=== PATIENT | male | born 1935 | race Caucasian/White ===

== ENCOUNTER 2018-10-01 06:52 | Inpatient (IN) | payer MEDICARE, OTHER ==
[~2018-10-01] VITALS: Ht 177.8 cm; Wt 67.6 kg
[2018-10-01] MEDS ORDERED: SODIUM CHLORIDE FLUSH 10ML SYR IVF ONE (07:30)
--- NOTE | 2018-10-01 07:48 | NUR ---
patient brought in by SHANKAR from his residence, he states that he lives with his sister and brother in law, has had weakness for approx 1 month, worsening in the last week, patient's medical hx includes CVA x2, no home medications, Chronic L knee and back neck pains. Xray and lab at bedside, urine collected and sent to lab, call light in reach, blankets provided.
[2018-10-01 07:50] LABS: BASOPHILS # (AUTO) 0.08 x10^3/uL (0-0.1); BASOPHILS % (AUTO) 1 % (0-1); EOSINOPHILS # (AUTO) 0.23 x10^3/uL (0-0.4); EOSINOPHILS % (AUTO) 3 % (1-7); LYMPHOCYTES # (AUTO) 2.47 x10^3/uL (1-3.4); LYMPHOCYTES % (AUTO) 36 % (22-44); MD NO; MEAN CORPUSCULAR HEMOGLOBIN 34.5 pg (27.5-34.5); MEAN CORPUSCULAR HGB CONC 32.9 g/dL (33.2-36.2); MEAN CORPUSCULAR VOLUME 104.7 fL (81-97); MEAN PLATELET VOLUME 7.3 fL (7.4-10.4); MONOCYTES # (AUTO) 0.72 x10^3/uL (0.2-0.8); MONOCYTES % (AUTO) 11 % (2-9); NEUTROPHILS # (AUTO) 3.33 x10^3/uL (1.8-6.8); NEUTROPHILS % (AUTO) 49 % (42-75); PLATELET COUNT 244 x10^3/uL (130-400); RED BLOOD COUNT 3.99 x10^6/uL (4.38-5.82); RED CELL DISTRIBUTION WIDTH 14.1 % (9.4-14.8)
[2018-10-01 07:51] LABS: MICROSCOPIC NOT IND
--- NOTE | 2018-10-01 07:52 | NUR ---
patient going to CT scan via [facility] now
[2018-10-01 07:57] LABS: CULTURE INDICATED? NO
[2018-10-01 08:01] LABS: ALANINE AMINOTRANSFERASE 14 U/L (12-78); ALBUMIN 3.6 g/dL (3.4-5.0); ANION GAP 9 mmol/L (5-15); CALCIUM 9.3 mg/dL (8.5-10.1); CHLORIDE 108 mmol/L (98-107); CREATININE 0.99 mg/dL (0.7-1.3)
[2018-10-01 08:06] LABS: ALKALINE PHOSPHATASE 74 U/L (45-117); BILIRUBIN,TOTAL 0.7 mg/dL (0.2-1.0); TOTAL PROTEIN 7.4 g/dL (6.4-8.2); TROPONIN I < 0.015 ng/mL (0.000-0.045)
--- NOTE | 2018-10-01 08:33 | NUR ---
sister and brother in law at bedside, no acute changes to patient's presentation, HOB raised to 50 degrees per Patient's request
[2018-10-01] MEDS ORDERED: SODIUM CHLORIDE FLUSH 10ML SYR IVF PRN (09:00)
--- NOTE | 2018-10-01 09:03 | NUR ---
report given to RANI Khan, all questions answered, RTG status now, patient and family updated of transfer plan, no acute changes noted.
[2018-10-01 10:10] VITALS: BP 175/78
[2018-10-01] MEDS ORDERED: LORazepam 1MG TABLET PO PRN (10:30)
[2018-10-01] MEDS ORDERED: ONDANSETRON ODT 4 MG PO PRN (10:30)
[2018-10-01] MEDS ORDERED: hydrALAzine 20 MG/ML, 1ML IV PRN (10:30)
[2018-10-01] MEDS: ENOXAPARIN 60 MG/0.6 ML SQ SCH ×3 (10:30→22:07)
[2018-10-01] MEDS ORDERED: LORazepam 2 MG/ML, 1ML IVPush PRN (10:30)
[2018-10-01] MEDS ORDERED: ONDANSETRON 2MG/ML, 2ML IVPush PRN (10:30)
[2018-10-01] MEDS: DOCUSATE 100 MG CAPSULE PO SCH (12:07)
[2018-10-01] MEDS: METHOCARBAMOL 500 MG TABLET PO PRN (12:07)
[2018-10-01] MEDS: FOLIC ACID 1 MG TABLET PO SCH (12:07)
[2018-10-01] MEDS: THIAMINE 100MG TABLET PO SCH (12:07)
[2018-10-01] MEDS: MULTIVITAMIN 1 TABLET PO SCH (12:07)
[2018-10-01 12:08] LABS: HEMOGLOBIN A1C 5.1 % (4.2-6.3)
[2018-10-01 12:17] VITALS: BP 165/94
[2018-10-01] MEDS: METOPROLOL TARTRATE 25 MG TABLET PO SCH (18:33)
[2018-10-01 20:01] VITALS: BP 141/78
[2018-10-02] VITALS (7 sets, daily range): BP systolic 113–180; BP diastolic 63–101
[2018-10-02] MEDS ORDERED: DIPHENHYDRAMINE 50 MG CAPSULE PO PRN (00:30)
[2018-10-02] MEDS: METOPROLOL TARTRATE 25 MG TABLET PO SCH (05:28)
[2018-10-02 06:03] LABS: BASOPHILS # (AUTO) 0.06 x10^3/uL (0-0.1); BASOPHILS % (AUTO) 1 % (0-1); EOSINOPHILS # (AUTO) 0.21 x10^3/uL (0-0.4); EOSINOPHILS % (AUTO) 4 % (1-7); LYMPHOCYTES # (AUTO) 2.31 x10^3/uL (1-3.4); LYMPHOCYTES % (AUTO) 38 % (22-44); MD NO; MEAN CORPUSCULAR HEMOGLOBIN 34.9 pg (27.5-34.5); MEAN CORPUSCULAR VOLUME 105.5 fL (81-97); MEAN PLATELET VOLUME 7.5 fL (7.4-10.4); MONOCYTES # (AUTO) 0.57 x10^3/uL (0.2-0.8); MONOCYTES % (AUTO) 9 % (2-9); NEUTROPHILS # (AUTO) 2.97 x10^3/uL (1.8-6.8); NEUTROPHILS % (AUTO) 49 % (42-75); PLATELET COUNT 219 x10^3/uL (130-400); RED BLOOD COUNT 3.64 x10^6/uL (4.38-5.82); RED CELL DISTRIBUTION WIDTH 14.3 % (9.4-14.8)
[2018-10-02 06:15] LABS: CHLORIDE 106 mmol/L (98-107)
[2018-10-02 06:44] LABS: ALANINE AMINOTRANSFERASE 15 U/L (12-78); ALBUMIN 3.4 g/dL (3.4-5.0); ALKALINE PHOSPHATASE 75 U/L (45-117); ANION GAP 6 mmol/L (5-15); BILIRUBIN,TOTAL 0.7 mg/dL (0.2-1.0); CALCIUM 9.5 mg/dL (8.5-10.1); CHOL/HDL RATIO 4.3; CHOLESTEROL, TOTAL 155 mg/dL (140-239); CREATININE 1.09 mg/dL (0.7-1.3); HDL CHOL % 23 % (26-37); HDL CHOLESTEROL (DIRECT) 36 mg/dL (40-60); LDL CHOLESTEROL,CALCULATED 109 mg/dL (54-169); TOTAL PROTEIN 7.2 g/dL (6.4-8.2); TRIGLYCERIDES 49 mg/dL (50-200); VLDL CHOLESTEROL 10 mg/dL (0-25)
[2018-10-02] MEDS: DOCUSATE 100 MG CAPSULE PO SCH (08:08)
[2018-10-02] MEDS: MULTIVITAMIN 1 TABLET PO SCH (08:08)
[2018-10-02] MEDS: FOLIC ACID 1 MG TABLET PO SCH (08:08)
[2018-10-02] MEDS: THIAMINE 100MG TABLET PO SCH (08:09)
[2018-10-02] MEDS ORDERED: MAGNESIUM SULFATE PMX 2GM/50ML 50 ML IV ONE (10:30)
[2018-10-02] MEDS: ENOXAPARIN 60 MG/0.6 ML SQ SCH ×2 (10:30→22:38)
[2018-10-02] MEDS: METOPROLOL TARTRATE 50 MG TABLET PO SCH (18:05)
[2018-10-02] MEDS: ATORVASTATIN 20 MG TABLET PO SCH (20:27)
[2018-10-03 01:12] VITALS: BP 112/63
[2018-10-03 04:59] VITALS: BP 169/94
[2018-10-03] MEDS: METOPROLOL TARTRATE 50 MG TABLET PO SCH (05:03)
[2018-10-03] MEDS: ACETAMINOPHEN 325 MG TABLET PO PRN ×2 (05:03→21:53)
[2018-10-03] MEDS: METHOCARBAMOL 500 MG TABLET PO PRN (05:23)
[2018-10-03 06:18] LABS: BASOPHILS # (AUTO) 0.04 x10^3/uL (0-0.1); BASOPHILS % (AUTO) 1 % (0-1); EOSINOPHILS # (AUTO) 0.18 x10^3/uL (0-0.4); EOSINOPHILS % (AUTO) 3 % (1-7); LYMPHOCYTES # (AUTO) 2.15 x10^3/uL (1-3.4); LYMPHOCYTES % (AUTO) 35 % (22-44); MD NO; MEAN CORPUSCULAR HEMOGLOBIN 35.8 pg (27.5-34.5); MEAN CORPUSCULAR HGB CONC 33.8 g/dL (33.2-36.2); MEAN CORPUSCULAR VOLUME 105.7 fL (81-97); MEAN PLATELET VOLUME 7.4 fL (7.4-10.4); MONOCYTES # (AUTO) 0.65 x10^3/uL (0.2-0.8); MONOCYTES % (AUTO) 11 % (2-9); NEUTROPHILS # (AUTO) 3.12 x10^3/uL (1.8-6.8); NEUTROPHILS % (AUTO) 51 % (42-75); PLATELET COUNT 203 x10^3/uL (130-400); RED CELL DISTRIBUTION WIDTH 14.3 % (9.4-14.8)
[2018-10-03 06:31] LABS: ANION GAP 8 mmol/L (5-15); CALCIUM 9.4 mg/dL (8.5-10.1); CHLORIDE 108 mmol/L (98-107)
[2018-10-03 06:44] VITALS: BP 156/94
[2018-10-03] MEDS: DOCUSATE 100 MG CAPSULE PO SCH (09:00)
[2018-10-03] MEDS: MULTIVITAMIN 1 TABLET PO SCH (10:04)
[2018-10-03] MEDS: FOLIC ACID 1 MG TABLET PO SCH (10:04)
[2018-10-03] MEDS: THIAMINE 100MG TABLET PO SCH (10:04)
[2018-10-03] MEDS: APIXABAN 5 MG TABLET PO SCH ×2 (10:40→21:53)
[2018-10-03 12:41] VITALS: BP 148/86
[2018-10-03 20:39] VITALS: BP 150/93
[2018-10-03] MEDS: ATORVASTATIN 20 MG TABLET PO SCH (21:53)
[2018-10-03] MEDS: LISINOPRIL 20 MG TABLET PO SCH (21:53)
[2018-10-04] MEDS: ACETAMINOPHEN 325 MG TABLET PO PRN ×2 (02:06→21:33)
[2018-10-04] MEDS: METHOCARBAMOL 500 MG TABLET PO PRN ×2 (02:06→21:32)
[2018-10-04 03:44] VITALS: BP 128/79
[2018-10-04 07:26] VITALS: BP 139/75
[2018-10-04] MEDS: DOCUSATE 100 MG CAPSULE PO SCH (10:00)
[2018-10-04] MEDS: LISINOPRIL 20 MG TABLET PO SCH ×2 (10:00→21:33)
[2018-10-04] MEDS: APIXABAN 5 MG TABLET PO SCH ×2 (10:00→21:33)
[2018-10-04] MEDS: THIAMINE 100MG TABLET PO SCH (10:00)
[2018-10-04] MEDS: FOLIC ACID 1 MG TABLET PO SCH (10:00)
[2018-10-04] MEDS: MULTIVITAMIN 1 TABLET PO SCH (10:01)
[2018-10-04 12:35] VITALS: BP 134/65
[2018-10-04] MEDS ORDERED: LISI-170 PO (13:39)
[2018-10-04] MEDS ORDERED: FOLI-17 PO (13:39)
[2018-10-04] MEDS ORDERED: MULT1TAB60 PO (13:39)
[2018-10-04] MEDS ORDERED: APIX5TAB PO (13:39)
[2018-10-04] MEDS ORDERED: METH500T7 PO (13:39)
[2018-10-04] MEDS ORDERED: THIA100T67 PO (13:39)
[2018-10-04] MEDS ORDERED: ACET325T14 PO (13:39)
[2018-10-04 19:54] VITALS: BP 140/77
[2018-10-04] MEDS: ATORVASTATIN 20 MG TABLET PO SCH (21:32)
[2018-10-05] MEDS: ACETAMINOPHEN 325 MG TABLET PO PRN ×2 (02:00→08:42)
[2018-10-05 02:02] VITALS: BP 154/54
[2018-10-05 02:04] VITALS: BP 167/120
[2018-10-05 02:10] VITALS: BP 161/86
[2018-10-05] MEDS: METHOCARBAMOL 500 MG TABLET PO PRN ×2 (05:35→15:27)
[2018-10-05 07:03] VITALS: BP 158/95
[2018-10-05] MEDS: MULTIVITAMIN 1 TABLET PO SCH (08:59)
[2018-10-05] MEDS: LISINOPRIL 20 MG TABLET PO SCH ×2 (08:59→20:22)
[2018-10-05] MEDS: DOCUSATE 100 MG CAPSULE PO SCH (08:59)
[2018-10-05] MEDS: THIAMINE 100MG TABLET PO SCH (08:59)
[2018-10-05] MEDS: APIXABAN 5 MG TABLET PO SCH ×2 (09:00→20:22)
[2018-10-05] MEDS: FOLIC ACID 1 MG TABLET PO SCH (09:00)
[2018-10-05 12:10] VITALS: BP 116/70
[2018-10-05 19:38] VITALS: BP 118/78
[2018-10-05] MEDS: ATORVASTATIN 20 MG TABLET PO SCH (20:22)
[2018-10-06 01:52] VITALS: BP 159/99
[2018-10-06 06:55] VITALS: BP 159/82
[2018-10-06] MEDS: THIAMINE 100MG TABLET PO SCH (09:31)
[2018-10-06] MEDS: DOCUSATE 100 MG CAPSULE PO SCH (09:32)
[2018-10-06] MEDS: ACETAMINOPHEN 325 MG TABLET PO PRN ×2 (09:32→19:26)
[2018-10-06] MEDS: LISINOPRIL 20 MG TABLET PO SCH ×2 (09:32→23:12)
[2018-10-06] MEDS: APIXABAN 5 MG TABLET PO SCH ×2 (09:32→23:12)
[2018-10-06] MEDS: MULTIVITAMIN 1 TABLET PO SCH (09:32)
[2018-10-06] MEDS: FOLIC ACID 1 MG TABLET PO SCH (09:32)
[2018-10-06 12:22] VITALS: BP 118/74
[2018-10-06] MEDS: METHOCARBAMOL 500 MG TABLET PO PRN (19:26)
[2018-10-06 19:40] VITALS: BP 134/81
[2018-10-06] MEDS: ATORVASTATIN 20 MG TABLET PO SCH (23:12)
[2018-10-07 01:09] VITALS: BP 166/85
[2018-10-07] MEDS: ACETAMINOPHEN 325 MG TABLET PO PRN ×3 (01:33→21:45)
[2018-10-07 04:42] VITALS: BP 112/73
[2018-10-07 06:57] VITALS: BP 141/88
[2018-10-07] MEDS: THIAMINE 100MG TABLET PO SCH (09:22)
[2018-10-07] MEDS: LISINOPRIL 20 MG TABLET PO SCH ×2 (09:22→21:45)
[2018-10-07] MEDS: DOCUSATE 100 MG CAPSULE PO SCH (09:22)
[2018-10-07] MEDS: METHOCARBAMOL 500 MG TABLET PO PRN ×2 (09:22→21:45)
[2018-10-07] MEDS: FOLIC ACID 1 MG TABLET PO SCH (09:22)
[2018-10-07] MEDS: MULTIVITAMIN 1 TABLET PO SCH (09:22)
[2018-10-07] MEDS: APIXABAN 5 MG TABLET PO SCH ×2 (09:22→21:44)
[2018-10-07 12:50] VITALS: BP 128/66
[2018-10-07 19:38] VITALS: BP 123/70
[2018-10-07] MEDS: ATORVASTATIN 20 MG TABLET PO SCH (21:45)
[2018-10-08 00:33] VITALS: BP 176/88
[2018-10-08 02:00] VITALS: BP 146/82
[2018-10-08 04:52] LABS: BASOPHILS # (AUTO) 0.05 x10^3/uL (0-0.1); BASOPHILS % (AUTO) 1 % (0-1); EOSINOPHILS # (AUTO) 0.26 x10^3/uL (0-0.4); EOSINOPHILS % (AUTO) 5 % (1-7); LYMPHOCYTES # (AUTO) 2.11 x10^3/uL (1-3.4); LYMPHOCYTES % (AUTO) 39 % (22-44); MD NO; MEAN CORPUSCULAR HEMOGLOBIN 35.8 pg (27.5-34.5); MEAN CORPUSCULAR VOLUME 105.5 fL (81-97); MEAN PLATELET VOLUME 7.7 fL (7.4-10.4); MONOCYTES # (AUTO) 0.76 x10^3/uL (0.2-0.8); MONOCYTES % (AUTO) 14 % (2-9); NEUTROPHILS # (AUTO) 2.18 x10^3/uL (1.8-6.8); NEUTROPHILS % (AUTO) 41 % (42-75); PLATELET COUNT 212 x10^3/uL (130-400); RED BLOOD COUNT 3.49 x10^6/uL (4.38-5.82); RED CELL DISTRIBUTION WIDTH 13.9 % (9.4-14.8)
[2018-10-08] MEDS: ACETAMINOPHEN 325 MG TABLET PO PRN (04:52)
[2018-10-08 05:01] LABS: ALBUMIN 3.1 g/dL (3.4-5.0); ANION GAP 4 mmol/L (5-15); CALCIUM 9.3 mg/dL (8.5-10.1); CHLORIDE 109 mmol/L (98-107); CREATININE 1.09 mg/dL (0.7-1.3)
[2018-10-08] MEDS ORDERED: CYANOCOBALAMIN 1,000 MCG/ML, 1ML IM ONE ×2 (07:00→17:00)
[2018-10-08 08:03] VITALS: BP 151/84
[2018-10-08] MEDS: THIAMINE 100MG TABLET PO SCH (08:20)
[2018-10-08] MEDS: DOCUSATE 100 MG CAPSULE PO SCH (08:21)
[2018-10-08] MEDS: APIXABAN 5 MG TABLET PO SCH ×2 (08:21→20:09)
[2018-10-08] MEDS: MULTIVITAMIN 1 TABLET PO SCH (08:21)
[2018-10-08] MEDS: FOLIC ACID 1 MG TABLET PO SCH (08:21)
[2018-10-08] MEDS: LISINOPRIL 20 MG TABLET PO SCH ×2 (08:21→20:09)
[2018-10-08 13:09] VITALS: BP 132/75
[2018-10-08] MEDS ORDERED: LIDODERM 5% PATCH TD ONE (17:30)
[2018-10-08 20:00] VITALS: BP 122/74
[2018-10-08] MEDS: ATORVASTATIN 20 MG TABLET PO SCH (20:09)
[2018-10-09 01:18] VITALS: BP 148/88
[2018-10-09 07:00] VITALS: BP 174/77
[2018-10-09] MEDS: DOCUSATE 100 MG CAPSULE PO SCH (07:25)
[2018-10-09] MEDS: FOLIC ACID 1 MG TABLET PO SCH (07:25)
[2018-10-09] MEDS: LISINOPRIL 20 MG TABLET PO SCH ×2 (07:25→20:17)
[2018-10-09] MEDS: THIAMINE 100MG TABLET PO SCH (07:25)
[2018-10-09] MEDS: MULTIVITAMIN 1 TABLET PO SCH (07:25)
[2018-10-09] MEDS: APIXABAN 5 MG TABLET PO SCH ×2 (07:25→20:17)
[2018-10-09] MEDS: METHOCARBAMOL 500 MG TABLET PO PRN (07:27)
[2018-10-09 10:01] VITALS: BP 109/71
[2018-10-09 14:00] VITALS: BP 109/66
[2018-10-09] MEDS ORDERED: MAGNESIUM SULFATE PMX 2GM/50ML 50 ML IV ONE (18:00)
[2018-10-09 18:38] LABS: ANION GAP 6 mmol/L (5-15); CHLORIDE 109 mmol/L (98-107); CREATININE 1.01 mg/dL (0.7-1.3)
[2018-10-09 19:00] VITALS: BP 122/74
[2018-10-09] MEDS: ATORVASTATIN 20 MG TABLET PO SCH (20:17)
[2018-10-10 01:16] VITALS: BP 147/72
[2018-10-10 05:52] LABS: BASOPHILS # (AUTO) 0.05 x10^3/uL (0-0.1); BASOPHILS % (AUTO) 1 % (0-1); EOSINOPHILS # (AUTO) 0.23 x10^3/uL (0-0.4); EOSINOPHILS % (AUTO) 4 % (1-7); LYMPHOCYTES # (AUTO) 2.09 x10^3/uL (1-3.4); LYMPHOCYTES % (AUTO) 33 % (22-44); MD NO; MEAN CORPUSCULAR HEMOGLOBIN 35.7 pg (27.5-34.5); MEAN CORPUSCULAR HGB CONC 34.2 g/dL (33.2-36.2); MEAN CORPUSCULAR VOLUME 104.4 fL (81-97); MEAN PLATELET VOLUME 7.6 fL (7.4-10.4); MONOCYTES # (AUTO) 0.66 x10^3/uL (0.2-0.8); MONOCYTES % (AUTO) 11 % (2-9); NEUTROPHILS # (AUTO) 3.25 x10^3/uL (1.8-6.8); NEUTROPHILS % (AUTO) 52 % (42-75); PLATELET COUNT 224 x10^3/uL (130-400); RED BLOOD COUNT 3.66 x10^6/uL (4.38-5.82); RED CELL DISTRIBUTION WIDTH 14.1 % (9.4-14.8)
[2018-10-10 08:41] VITALS: BP 111/64
[2018-10-10] MEDS: APIXABAN 5 MG TABLET PO SCH (08:51)
[2018-10-10] MEDS: MULTIVITAMIN 1 TABLET PO SCH (08:51)
[2018-10-10] MEDS: LISINOPRIL 20 MG TABLET PO SCH (08:51)
[2018-10-10] MEDS: THIAMINE 100MG TABLET PO SCH (08:51)
[2018-10-10] MEDS: DOCUSATE 100 MG CAPSULE PO SCH (08:51)
[2018-10-10] MEDS: FOLIC ACID 1 MG TABLET PO SCH (08:51)
[2018-10-10] MEDS ORDERED: ATOR20TA37 PO (10:54)
[2018-10-10] MEDS: ACETAMINOPHEN 325 MG TABLET PO PRN (11:32)
[2018-10-10 12:57] VITALS: BP 136/75
== END 2018-10-10 15:02 | DRG 640 ==
LOC: ED 08:52 → 4EST 09:12
PROVIDERS: ADMIT Hospitalist; ATTEND Hospitalist
DX: R62.7 Adult failure to thrive (principal); R53.2 Functional quadriplegia; D68.69 Other thrombophilia; I69.351 Hemiplegia and hemiparesis following cerebral infarction affecting right dominant side; F32.0 Major depressive disorder, single episode, mild; F10.10 Alcohol abuse, uncomplicated; G89.29 Other chronic pain; R32 Unspecified urinary incontinence; R00.1 Bradycardia, unspecified; R53.81 Other malaise; D75.89 Other specified diseases of blood and blood-forming organs; E83.42 Hypomagnesemia; M19.90 Unspecified osteoarthritis, unspecified site; I48.2 Chronic atrial fibrillation; I10 Essential (primary) hypertension; Z68.21 Body mass index [BMI] 21.0-21.9, adult; Z79.01 Long term (current) use of anticoagulants; Z91.81 History of falling; Z79.899 Other long term (current) drug therapy; Z87.891 Personal history of nicotine dependence; Z90.89 Acquired absence of other organs
CPT/HCPCS: 36415; 70450; 71045; 72040; 72125; 80048; 80053; 80061; 81003; 82040; 82306; 82607; 83036; 83735; 84100; 84439; 84443; 84484; 85025; 90656; 93005; 93306; 99285; G0378; J1650; 92523-GN; G0515-GN; J3420; J3475

== ENCOUNTER 2019-02-09 09:54 | Emergency (ER) | payer MEDICARE ==
[~2019-02-09] VITALS: Ht 177.8 cm; Wt 80.0 kg
[~2019-02-09 09:54] MED LIST: ACET325T14 PO; APIX5TAB PO; ATOR20TA37 PO; FOLI-17 PO; LISI-170 PO; METH500T7 PO; MULT1TAB60 PO; THIA100T67 PO
[2019-02-09 10:02] VITALS: BP 148/64
[2019-02-09] MEDS ORDERED: BACITRACIN ZINC OINT 500U/GM, 0.9 GM ONE (11:05)
== END 2019-02-09 11:31 | disposition home or self-care (01) ==
LOC: ED 11:00
DX: S91.104A Unspecified open wound of right lesser toe(s) without damage to nail, initial encounter (principal); I10 Essential (primary) hypertension; I48.91 Unspecified atrial fibrillation; Z87.891 Personal history of nicotine dependence; Z86.73 Personal history of transient ischemic attack (TIA), and cerebral infarction without residual deficits; X58.XXXA Exposure to other specified factors, initial encounter; Y93.89 Activity, other specified; Y92.89 Other specified places as the place of occurrence of the external cause; Y99.8 Other external cause status
CPT/HCPCS: 99283

== ENCOUNTER 2019-07-02 10:04 | Inpatient (IN) | payer MEDICARE ==
[~2019-07-02] VITALS: Ht 175.3 cm; Wt 64.2 kg
--- NOTE | 2019-07-02 10:30 | NUR ---
ECG OBTAINED BY EMT
--- NOTE | 2019-07-02 10:41 | NUR ---
Bib by derian after assistive living checkup found patient with worse right sided labial fold droop as well as UE & LE weakness. Patient w/ hx of CVA with resulting right sided weakness that was severe but has improved as he has recovered. Last know at baseline yesterday (unknown exact time) FSBS:100 IN AFIB (RATE OF 80), 115/72)) HX OF AFIB-UNKNOWN IF ANTICOAGULATED-WILL LOOK INTO On arrival patient A+OX4 with 0/5 strength to RUE/RLE, 1/2 RIGHT LABIAL FOLD DROOP. ALSO WITH PRONOUNCED DSYSARTHIA. (PATIENT REPORTS SPEECH DYSARTHRIA ABNORMAL FOR HIM) CODE NEURO CALL DEFERRED PER ER MD OUT OF WINDOW (>12 HOURS) ARRIVED IN ROOM 10:05AM ER MD TO BEDSIDE AT 10:06AM TO CT SCAN AT 10:08AM
--- NOTE | 2019-07-02 10:42 | NUR ---
CT RESULT POSTED AT 10:29- REVIEWED TO DISCUSS WITH JESSICA CASTANON
--- NOTE | 2019-07-02 10:49 | NUR ---
UNABLE TO COMPLETE MED RECC- PATIENT UNSURE OF MEDS. 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 CASTILLO AT [phone]) NO ANSWER LEFT VOICEMAIL
[2019-07-02 10:55] LABS: BASOPHILS # (AUTO) 0.05 x10^3/uL (0-0.1); BASOPHILS % (AUTO) 1 % (0-1); EOSINOPHILS # (AUTO) 0.05 x10^3/uL (0-0.4); EOSINOPHILS % (AUTO) 1 % (1-7); LYMPHOCYTES # (AUTO) 1.52 x10^3/uL (1-3.4); LYMPHOCYTES % (AUTO) 26 % (22-44); MD NO; MEAN CORPUSCULAR HEMOGLOBIN 33.9 pg (27.5-34.5); MEAN CORPUSCULAR HGB CONC 32.9 g/dL (33.2-36.2); MEAN CORPUSCULAR VOLUME 102.9 fL (81-97); MEAN PLATELET VOLUME 7.1 fL (7.4-10.4); MONOCYTES # (AUTO) 0.59 x10^3/uL (0.2-0.8); MONOCYTES % (AUTO) 10 % (2-9); NEUTROPHILS % (AUTO) 63 % (42-75); PLATELET COUNT 238 x10^3/uL (130-400); RED BLOOD COUNT 4.11 x10^6/uL (4.38-5.82); RED CELL DISTRIBUTION WIDTH 13.9 % (9.4-14.8)
--- NOTE | 2019-07-02 10:58 | NUR ---
SWALLOW EVAL UNREMARKABLE (PASSED) ER PROVIDER ASKED ABOUT ASA ADMIN (POTENTIALLY ON ELIQUIS) ER PROVIDER CONSIDERING
[2019-07-02 11:04] LABS: INTERNATIONAL NORMALIZED RATIO 1.07 (0.93-1.1); PROTHROMBIN TIME 11.2 Seconds (9.6-11.5)
--- NOTE | 2019-07-02 11:05 | NUR ---
SISTER AT BEDSIDE (MS. CASTILLO) REPORTS SPEECH QUITE ABNORMAL BUT RIGHT SIDED WEAKNESS NORMAL (INCLUDING FACIAL DROOP) SHE REPORTS PATIENT TAKES ELIQUIS 5MG BID & METOPROLOL ER QPM AND TYLENOL APAP PRN (HAS NOT TAKEN ANY MEDICINES TODAY DID TAKE METOPROLOL LAST NIGHT POC CLARIFIED WITH ER PROVIDER-TO AVOID ASA- TO AVOID STAT MRI, PLAN TO CALL NEURO AND ADMIT PATIENT/FAMILY UPDATED
[2019-07-02 11:07] LABS: ALBUMIN 3.5 g/dL (3.4-5.0); ANION GAP 8 mmol/L (5-15); CALCIUM 9.2 mg/dL (8.5-10.1); CHLORIDE 104 mmol/L (98-107)
[2019-07-02 11:13] LABS: CREATININE 1.32 mg/dL (0.7-1.3); TROPONIN I < 0.015 ng/mL (0.000-0.045)
--- NOTE | 2019-07-02 11:19 | NUR ---
Lunch tray ordered Repeat neuro check unchanged Er provider asked about ivf as labs potentially show dehydration Vitals remain stable on tin plater
--- NOTE | 2019-07-02 11:37 | NUR ---
standing scale weight of 64.3kg
[2019-07-02] MEDS ORDERED: DABIGATRAN 150 MG CAPSULE PO SCH (12:00)
--- NOTE | 2019-07-02 12:24 | NUR ---
DR. FERNÁNDEZ (HOSPITALIST) AT BEDSIDE- PLAN TO ADMIN PRADAXA/ASA. TO HOLD ELIQUIS UNTIL TOMORROW (07/03) WHICH MAY BE CHANGED TO PRADAXA PER AND/OR NEUROLOGY
[2019-07-02] MEDS ORDERED: morphine SULFATE 10 MG/ML, 1ML IVPush PRN (12:30)
[2019-07-02] MEDS ORDERED: ONDANSETRON 2MG/ML, 2ML IVPush PRN (12:30)
[2019-07-02] MEDS ORDERED: ACETAMINOPHEN 650 MG/20.3 ML UDC PO PRN (12:30)
[2019-07-02] MEDS ORDERED: ASPIRIN 81 MG TABLET CHEW ONE (12:31)
--- NOTE | 2019-07-02 12:35 | NUR ---
PATIENT RETURNED TO ROOM FFROM MRI THEN CTS ASA ADMINISTERED PER EMAR REQUESTED PRADAXA AND NS WITH K FROM PHARMACY NEURO CHECK IMPROVED (SPEECH MUCH BETTER/FACIAL DROOP IMPROVED)
[2019-07-02] MEDS: ASPIRIN 81 MG TABLET CHEW PO/NG SCH (12:45)
[2019-07-02] MEDS: DABIGATRAN 150 MG CAPSULE PO SCH (12:45)
[2019-07-02] MEDS: POTASSIUM CHLORIDE 10 MEQ in SODIUM CHLORIDE 0.9% 1,000 ML IV SCH ×2 (12:45→23:04)
--- NOTE | 2019-07-02 12:46 | NUR ---
MEDICATED PER EMAR (NS W/ K AND PRADAXA 150 PO)
--- NOTE | 2019-07-02 13:15 | NUR ---
SPEECH NOW SLURRING AGAIN (NO WORSE THAN EARLIER)
--- NOTE | 2019-07-02 13:25 | NUR ---
IVF HELD PATIENT TRANSFERRED TO FLOOR
[2019-07-02 13:51] VITALS: BP 152/94
[2019-07-02 14:05] VITALS: BP 152/94
[2019-07-02] MEDS ORDERED: OMNIPAQUE 350 MG/ML, 100ML BOTTLE ONE (15:38)
[2019-07-02] MEDS: OXYcodone 5 MG/5 ML ORAL.SOL UDC PO PRN ×2 (16:04→20:44)
[2019-07-02 16:10] LABS: MICROSCOPIC NOT IND
[2019-07-02 16:20] LABS: CULTURE INDICATED? NO
[2019-07-02 17:00] VITALS: BP 161/100
[2019-07-02] MEDS ORDERED: METO1TAB31 PO (17:47)
[2019-07-02 19:03] VITALS: BP 172/96
[2019-07-02 20:00] VITALS: BP 163/111
[2019-07-02] MEDS ORDERED: METOPROLOL TARTRATE 25 MG TABLET PO ONE (20:00)
[2019-07-02] MEDS: ATORVASTATIN 40 MG TABLET PO SCH (20:13)
[2019-07-02 22:00] VITALS: BP 154/79
[2019-07-02] MEDS ORDERED: FLU VACC QS2019-20 36MOS UP/PF 0.5 ML IM-VACC ONE (23:30)
[2019-07-03 00:06] VITALS: BP 177/101
[2019-07-03 02:07] VITALS: BP 162/93
[2019-07-03 06:10] LABS: CHOL/HDL RATIO 5.9
[2019-07-03 06:11] LABS: LDL/HDL RATIO 4.6 (0.5-3.0)
[2019-07-03 08:00] VITALS: BP 124/67
[2019-07-03] MEDS: DABIGATRAN 150 MG CAPSULE PO SCH ×2 (08:33→20:34)
[2019-07-03] MEDS: ASPIRIN 81 MG TABLET CHEW PO/NG SCH (08:33)
[2019-07-03] MEDS ORDERED: ASPIRIN 81 MG TABLET CHEW PO/NG SCH (09:00)
[2019-07-03] MEDS ORDERED: APIXABAN 5 MG TABLET PO SCH (09:00)
--- NOTE | 2019-07-03 09:10 | NUR ---
REC: Reg/thins; no orange sheet indicated Addendum: 07/03/19 at 0910 by Irene ROBERTS Amended: Links added.
[2019-07-03] MEDS: POTASSIUM CHLORIDE 10 MEQ in SODIUM CHLORIDE 0.9% 1,000 ML IV SCH (09:28)
[2019-07-03] MEDS ORDERED: METO25TA91 PO (11:35)
[2019-07-03 12:00] VITALS: BP 157/103
[2019-07-03] MEDS: OXYcodone 5 MG/5 ML ORAL.SOL UDC PO PRN ×2 (13:17→20:47)
[2019-07-03 14:51] VITALS: BP 100/63
[2019-07-03 19:12] VITALS: BP 143/95
[2019-07-03] MEDS: ATORVASTATIN 40 MG TABLET PO SCH (20:34)
[2019-07-04 01:06] VITALS: BP 159/83
[2019-07-04 05:07] LABS: BASOPHILS # (AUTO) 0.05 x10^3/uL (0-0.1); BASOPHILS % (AUTO) 1 % (0-1); EOSINOPHILS # (AUTO) 0.25 x10^3/uL (0-0.4); EOSINOPHILS % (AUTO) 4 % (1-7); LYMPHOCYTES # (AUTO) 1.71 x10^3/uL (1-3.4); LYMPHOCYTES % (AUTO) 27 % (22-44); MD NO; MEAN CORPUSCULAR HEMOGLOBIN 34.3 pg (27.5-34.5); MEAN CORPUSCULAR VOLUME 103.7 fL (81-97); MEAN PLATELET VOLUME 7.2 fL (7.4-10.4); MONOCYTES # (AUTO) 0.61 x10^3/uL (0.2-0.8); MONOCYTES % (AUTO) 10 % (2-9); NEUTROPHILS # (AUTO) 3.67 x10^3/uL (1.8-6.8); NEUTROPHILS % (AUTO) 58 % (42-75); PLATELET COUNT 210 x10^3/uL (130-400); RED BLOOD COUNT 3.87 x10^6/uL (4.38-5.82); RED CELL DISTRIBUTION WIDTH 14.3 % (9.4-14.8)
[2019-07-04 05:23] LABS: ANION GAP 6 mmol/L (5-15); CALCIUM 8.7 mg/dL (8.5-10.1); CHLORIDE 109 mmol/L (98-107)
[2019-07-04 05:25] LABS: CREATININE 1.12 mg/dL (0.7-1.3)
[2019-07-04 08:07] VITALS: BP 152/89
[2019-07-04] MEDS ORDERED: METOPROLOL SUCCINATE 25 MG TAB.ER.24H PO SCH (09:00)
[2019-07-04] MEDS: DABIGATRAN 150 MG CAPSULE PO SCH (10:08)
[2019-07-04] MEDS: ASPIRIN 81 MG TABLET CHEW PO/NG SCH (10:09)
[2019-07-04 13:02] VITALS: BP 158/81
[2019-07-04 14:32] VITALS: BP 157/79
[2019-07-04] MEDS ORDERED: ASPI-515 PO/NG (15:31)
[2019-07-04] MEDS ORDERED: ATOR40TA78 PO (15:31)
[2019-07-04] MEDS ORDERED: METO25TA91 PO (15:31)
[2019-07-04] MEDS ORDERED: DABI150C PO (15:31)
[2019-07-05] MEDS ORDERED: METOPROLOL SUCCINATE 50 MG TAB.ER.24H PO SCH (09:00)
== END 2019-07-04 18:00 | DRG 64 ==
LOC: ED 11:48 → EDIP 11:49 → 4EST 13:39
PROVIDERS: ADMIT Internal Medicine; ATTEND Internal Medicine
PROC: B3111ZZ Fluoroscopy of Right Brachiocephalic-Subclavian Artery using Low Osmolar Contrast (ICD-10-PCS; principal; 2019-07-02)
PROC: B31G1ZZ Fluoroscopy of Bilateral Vertebral Arteries using Low Osmolar Contrast (ICD-10-PCS; 2019-07-02)
PROC: B3121ZZ Fluoroscopy of Left Subclavian Artery using Low Osmolar Contrast (ICD-10-PCS; 2019-07-02)
PROC: B3181ZZ Fluoroscopy of Bilateral Internal Carotid Arteries using Low Osmolar Contrast (ICD-10-PCS; 2019-07-02)
PROC: B31B1ZZ Fluoroscopy of Left External Carotid Artery using Low Osmolar Contrast (ICD-10-PCS; 2019-07-02)
PROC: B3151ZZ Fluoroscopy of Bilateral Common Carotid Arteries using Low Osmolar Contrast (ICD-10-PCS; 2019-07-02)
DX: I63.81 Other cerebral infarction due to occlusion or stenosis of small artery (principal); N17.0 Acute kidney failure with tubular necrosis; D68.69 Other thrombophilia; I48.20 Chronic atrial fibrillation, unspecified; I69.351 Hemiplegia and hemiparesis following cerebral infarction affecting right dominant side; D75.89 Other specified diseases of blood and blood-forming organs; F10.11 Alcohol abuse, in remission; I11.9 Hypertensive heart disease without heart failure; M19.90 Unspecified osteoarthritis, unspecified site; Z79.01 Long term (current) use of anticoagulants; Z83.1 Family history of other infectious and parasitic diseases; Z91.14 Patient's other noncompliance with medication regimen; F32.9 Major depressive disorder, single episode, unspecified; R47.1 Dysarthria and anarthria; M54.2 Cervicalgia; G89.29 Other chronic pain; R32 Unspecified urinary incontinence
CPT/HCPCS: 36415; 70450; 70496; 70498; 70551; 71045; 80048; 80061; 81003; 82040; 82607; 83880; 84443; 84484; 85025; 85610; 93005; 93306; 99285; G0378; J3480; Q9967; 92523-GN; J2270; J7030

== ENCOUNTER 2019-11-14 15:03 | Emergency (ER) | payer MEDICARE ==
[~2019-11-14] VITALS: Ht 180.3 cm; Wt 59.5 kg
[~2019-11-14 15:03] MED LIST changes: +ACET325T26 PO; +ALBU90AE INH; +ASPI-515 PO/NG; +ATOR40TA78 PO; +DABI150C PO; +ERGO2000 PO; +LEVE500T53 PO; +LISI-167 PO; +METO1TAB31 PO; +METO25TA35 PO; +METO25TA91 PO; +VITA1TAB71 PO
--- NOTE | 2019-11-14 15:15 | NUR ---
THIS IS A 84 YO M BIB [facility] FROM [place]. [facility] REPORTS FACILITY CALLED BECAUSE PT WAS ALTERED AFTER LUNCH. PT HAD PURREE DIET, STARTED COUGHING AND DESATING AND THEN BECAME ALTERED. PT IS CURRENTLY A&OX4. FREQUENT COUGH NOTED. PT WAS TRANSFERED TO [facility] FROM [facility] ON 11/11 AFTER BEING ADMITTED FOR 1 WEEK FOR FALLS. VS STABLE. NADN. PT IS ANSWERING QUESTIONS APPROPRIATELY. CONNECTED TO MONITORING. CALL LIGHT IN REACH. SIDE RAILS UP X2.
--- NOTE | 2019-11-14 15:45 | NUR ---
JANNET HONEYCUTT (NIECE) [phone] CALLED AND WOULD LIKE TO KNOW IF PT IS ADMITTED. SHE STATES THAT HER SISTER RANDY WILL BE COMING BY TO SEE PT.
[2019-11-14 16:05] LABS: BASOPHILS # (AUTO) 0.05 x10^3/uL (0-0.1); BASOPHILS % (AUTO) 1 % (0-1); EOSINOPHILS # (AUTO) 0.13 x10^3/uL (0-0.4); EOSINOPHILS % (AUTO) 2 % (1-7); LYMPHOCYTES # (AUTO) 1.65 x10^3/uL (1-3.4); LYMPHOCYTES % (AUTO) 19 % (22-44); MD NO; MEAN CORPUSCULAR HEMOGLOBIN 34.1 pg (27.5-34.5); MEAN CORPUSCULAR HGB CONC 33.2 g/dL (33.2-36.2); MEAN CORPUSCULAR VOLUME 102.5 fL (81-97); MEAN PLATELET VOLUME 7.4 fL (7.4-10.4); MONOCYTES # (AUTO) 0.85 x10^3/uL (0.2-0.8); MONOCYTES % (AUTO) 10 % (2-9); NEUTROPHILS # (AUTO) 6.14 x10^3/uL (1.8-6.8); NEUTROPHILS % (AUTO) 70 % (42-75); PLATELET COUNT 265 x10^3/uL (130-400); RED BLOOD COUNT 3.55 x10^6/uL (4.38-5.82); RED CELL DISTRIBUTION WIDTH 14.1 % (9.4-14.8)
[2019-11-14 16:11] LABS: INTERNATIONAL NORMALIZED RATIO 1.09 (0.93-1.1); PROTHROMBIN TIME 11.6 Seconds (9.6-11.5)
[2019-11-14 16:13] LABS: ALANINE AMINOTRANSFERASE 25 U/L (12-78); ALBUMIN 3.4 g/dL (3.4-5.0); ANION GAP 6 mmol/L (5-15); CALCIUM 9.2 mg/dL (8.5-10.1); CHLORIDE 108 mmol/L (98-107); CREATININE 1.15 mg/dL (0.7-1.3)
--- NOTE | 2019-11-14 16:13 | NUR ---
URINE COLLECTED AND SENT TO LAB.
[2019-11-14 16:17] LABS: ALKALINE PHOSPHATASE 79 U/L (45-117); BILIRUBIN,TOTAL 1.1 mg/dL (0.2-1.0)
[2019-11-14 16:22] LABS: MICROSCOPIC NOT IND
[2019-11-14 16:23] LABS: CULTURE INDICATED? NO
--- NOTE | 2019-11-14 16:40 | NUR ---
ALL TESTS RESULTED. PT IS UP FOR RECHECK AT THIS TIME.
--- NOTE | 2019-11-14 17:17 | NUR ---
BP 89/47 REPORTED TO . 500ML NS BOLUS ORDERED.
--- NOTE | 2019-11-14 17:21 | NUR ---
PIV STARTED. 500ML NS BOLUS STARTED.
[2019-11-14] MEDS ORDERED: SODIUM CHLORIDE 0.9%, 500ML IVBOLUS ONE (17:30)
--- NOTE | 2019-11-14 17:55 | NUR ---
PT TO CT.
--- NOTE | 2019-11-14 18:25 | NUR ---
ALL TESTS RESULTED. PT IS UP FOR RECHECK AT THIS TIME.
--- NOTE | 2019-11-14 18:52 | NUR ---
REPORT GIVEN TO RANDALL SARAVIA.
--- NOTE | 2019-11-14 19:02 | NUR ---
ASSUMED CARE OF PT, CURRENTLY SLEEPING, NO ACUTE DISTRESS NOTED, RESPIRATIONS ARE EVEN AND UNLABORED, VSS. CALL LIGHT PLACED WITHIN REACH, SIDE RAILS UP AND LOCKED.
--- NOTE | 2019-11-14 20:36 | NUR ---
ATTEMPTED TO CALL REPORT TO [facility], PER PERSON ANSWERING PHONE, SHE WILL RETURN MY CALL.
--- NOTE | 2019-11-14 21:07 | NUR ---
CALL FROM DECEMBER AT [facility], SBAR REPORT GIVEN TO LADI. AWAITING [facility] FOR TRANSPORT.
[2019-11-14 21:26] VITALS: BP 133/61
--- NOTE | 2019-11-14 22:00 | NUR ---
[facility] HERE FOR TRANSPORT, VSS, SBAR REPORT GIVEN.
== END 2019-11-14 22:06 | disposition home or self-care (01) ==
LOC: ED 20:05
DX: R05 Cough (principal); R41.82 Altered mental status, unspecified; E86.0 Dehydration; I12.9 Hypertensive chronic kidney disease with stage 1 through stage 4 chronic kidney disease, or unspecified chronic kidney disease; N18.9 Chronic kidney disease, unspecified; I48.91 Unspecified atrial fibrillation; Z86.73 Personal history of transient ischemic attack (TIA), and cerebral infarction without residual deficits; Z87.891 Personal history of nicotine dependence
CPT/HCPCS: 36415; 70450; 71045; 80053; 81003; 83605; 84145; 85025; 85610; 85730; 87040; 96360; 99285; J7040